=== PATIENT | female | born 1960 | race Caucasian/White ===

== ENCOUNTER 2018-08-08 17:45 | Emergency (ER) | payer BC ==
[2018-08-08 21:01] VITALS: BP 132/85
--- NOTE | 2018-08-08 21:06 | UC ---
Throat Pain/Nasal Niall HPI - HPI Summary HPI Summary: Patient finished a course of amoxicillin for sinusitis on Wednesday and was feeling much better until last evening when she started having head congestion again. - History of Current Complaint Chief Complaint: UCGeneralIllness Stated Complaint: SINUS COMPLAINT,HEADACHE,CHEST CONGESTION Time Seen by Provider: 08/08/18 20:54 Hx Obtained From: Patient ?: No Onset/Duration: Gradual Onset Severity: Mild Pain Intensity: 3 Cough: Nonproductive Associated Signs & Symptoms: Positive: Sinus Discomfort - Epiglottits Risk Factors Epiglottis Risk Factors: Negative - Allergies/Home Medications Allergies/Adverse Reactions: Allergies Allergy/AdvReac Type Severity Reaction Status Date / Time No Known Allergies Allergy Verified 07/27/18 14:27 PMH/Surg Hx/FS Hx/Imm Hx Previously Healthy: Yes - Surgical History Surgical History: Yes Surgery Procedure, Year, and Place: R foot bunionectomy - Family History Known Family History: Positive: Cardiac Disease - Social History Alcohol Use: Occasionally Substance Use Type: None Smoking Status (MU): Never Smoked Tobacco Have You Smoked in the Last Year: No - Immunization History Vaccination Up to Date: No Review of Systems All Other Systems Reviewed And Are Negative: Yes ENT: Positive: Sinus Congestion, Sinus Pain/Tenderness Respiratory: Positive: Cough - Unproductive cough. Is Patient Immunocompromised?: No Physical Exam Triage Information Reviewed: Yes Appearance: Well-Appearing, No Pain Distress, Well-Nourished Vital Signs: Initial Vital Signs Temp 97.8 F 08/08/18 20:56 Pulse 76 08/08/18 20:56 Resp 16 08/08/18 20:56 BP 132/85 08/08/18 20:56 Pulse Ox 100 08/08/18 20:56 Vital Signs Reviewed: Yes Eye Exam: Normal ENT: Positive: Normal ENT inspection, Hearing grossly normal, Pharynx normal, TMs normal, Sinus tenderness, Uvula midline Neck: Positive: Supple, Nontender, No Lymphadenopathy Respiratory: Positive: Lungs clear, Normal breath sounds, No respiratory distress, No accessory muscle use Cardiovascular: Positive: RRR, No Murmur, Pulses Normal, Brisk Capillary Refill Throat Pain/Nasal Course/Dx - Course Course Of Treatment: I believe that patient's sinusitis has cleared. She did state that she is leaving for [place] on vacation and didn't want to get sicker. I believe at this point time she may have caught a viral illness however I don't believe she needs an antibiotic at this point in time. His follow-up with her primary care provider in 3 or 4 days if no improvement. Two-view her Flonase. - Differential Dx/Diagnosis Provider Diagnosis: URI (upper respiratory infection) Discharge - Sign-Out/Discharge Documenting (check all that apply): Patient Departure All imaging exams completed and their final reports reviewed: No Studies - Discharge Plan Condition: Good Disposition: HOME Patient Education Materials: Upper Respiratory Infection (DC) Referrals: Imelda Pepe MD [Primary Care Provider] - Additional Instructions: Increase fluids, continue your Flonase as directed, follow-up with your primary care provider in 3 or 4 days if no improvement. - Billing Disposition and Condition Condition: GOOD Disposition: Home - Attestation Statements Provider Attestation: Per institutional requirements, I have reviewed the chart, however, I was not consulted specifically or made aware of this patient by the midlevel provider. I did not personally evaluate, interact with , or disposition this patient.
== END 2018-08-08 21:13 | disposition home or self-care (01) ==
LOC: UCCORT 17:45
DX: J06.9 Acute upper respiratory infection, unspecified (principal)
CPT/HCPCS: 99211; G0463